=== PATIENT | female | born 1985 | race Caucasian/White ===

== ENCOUNTER 2017-07-31 13:22 | Emergency (ER) | payer BC ==
[~2017-07-31] VITALS: Ht 182.9 cm; Wt 164.5 kg
[2017-07-31 13:38] VITALS: BP 145/81
[2017-07-31 14:47] LABS: HEMATOCRIT 47.4 % (34.6-47.8); HEMOGLOBIN 15.7 g/dL (11.7-16.4); WHITE BLOOD COUNT 12.5 x10^3/uL (3.4-10)
[2017-07-31 14:58] LABS: BLOOD UREA NITROGEN 10 mg/dL (7-18)
[2017-07-31] MEDS ORDERED: OMNIPAQUE 350 MG/ML, 100ML BOTTLE ONE (17:02)
== END 2017-07-31 19:13 | disposition home or self-care (01) ==
LOC: ED 19:10
DX: O20.0 Threatened abortion (principal); Z3A.00 Weeks of gestation of pregnancy not specified
CPT/HCPCS: 36415; 74177; 76830; 80048; 81001; 82040; 84702; 84703; 85025; 86901; 99285; Q9967